=== PATIENT | male | born 1980 | race Caucasian/White ===

== ENCOUNTER 2020-11-28 03:01 | Emergency (ER) | payer MEDICAID, SELFPAY ==
[2020-11-28 03:09] VITALS: BP 128/106; PULSE 106; RESP 20; O2SAT 98; BMI 29.8
[2020-11-28 03:17] VITALS: BP 125/83; PULSE 99; O2SAT 92
--- NOTE | 2020-11-28 03:48 | ED_ITS ---
HPI - Overdose General Chief Complaint: Overdose Stated Complaint: OD Time Seen by Provider: 11/28/20 03:46 Source: patient and EMS Mode of arrival: EMS Limitations: no limitations History of Present Illness HPI Narrative: Patient comes to the emergency room via EMS. Patient was found unresponsive behind [employer], was given 4 mg nasal Narcan, patient was ventilated with [id number] by police department, then he was given an additional 4 mg nasal by EMS. Patient woke up, patient is alert and oriented x3, admits to using heroin, smoking crack, drinking alcohol. Patient states this is his 1st overdose in 6 weeks, states it was unintentional, denies suicidal homicidal ideation. Patient denies any other complaints Related Data Allergies Allergy/AdvReac Type Severity Reaction Status Date / Time doxycycline Allergy Hives Verified 11/28/20 03:14 Review of Systems Review of Systems: Constitutional : No Weight loss, No Fever, No Chills, No Night Sweats, No Fatigue, No Malaise ENT/Mouth : No Hearing loss, No Ear Pain, No Nasal Congestion, No Sinus Pain, No Hoarseness, No sore throat, No Rhinorrhea, No Swallowing Difficulty Eyes: No Eye Pain, No Swelling, No Redness, No Foreign Body, No Discharge, No Vision Changes Cardiovascular : No Chest Pain, No SOB, No Dyspnea on Exertion, No Orthopnea, No Edema, No Palpitations Respiratory : No Cough, No Sputum, No Wheezing, No Smoke Exposure, No Dyspnea Gastrointestinal : No Nausea, No Vomiting, No Diarrhea, No Constipation, No abdominal Pain, No Hematochezia, No Melena Genitourinary : no irregular bleeding, No Dysuria, No Urinary Frequency, No Hematuria, No Urinary Incontinence, No Urgency, No Flank Pain, No Urinary Flow Changes, No Hesitancy Musculoskeletal : No joint pain, No Myalgias, No Joint Swelling Skin : No Skin Lesions, No rash Neuro : No Weakness, No Numbness, No Paresthesias, No Loss of Consciousness, No Dizziness, No Headache Psych : No Anxiety/Panic, No Depression, No SI/HI/AH/VH, No Social Issues, Heme/Lymph: No Bruising, No Bleeding,No Lymphadenopathy Endocrine : No Polyuria, No Polydipsia, No Temperature Intolerance [facility] Past Medical History Medical History (Updated 11/28/20 @ 03:51 by Heather Stewart MD) Substance abuse Social History Social History Advance Directives: No Physical Exam Vital Signs: Vital Signs: Last Vital Signs Pulse 92 11/28/20 07:25 Resp 17 11/28/20 07:25 BP 117/63 11/28/20 07:25 Pulse Ox 99 11/28/20 07:25 Body Mass Index 29.8 Appearance: Alert. Oriented X3. No acute distress. Somnolent but easily arousable, calm and cooperative Eyes: Pupils equal, round and reactive to light. ENT: Pharynx normal. Neck: Normal inspection. Neck supple. No lymph nodes noted. No crepitus CVS: Normal heart rate and rhythm. Pulses normal. Normal S1 and S2 Respiratory: No respiratory distress. Breath sounds normal. No Wheezing. No rales Abdomen: Soft and nontender. No rigidity. No distention. good BS x4 Skin: Skin warm and dry. Normal skin color. Normal skin turgor. Extremities: No lower extremity edema. No lower extremity edema. No Lacerations. No Rash Neuro: Oriented X 3. No motor deficit. No sensory deficit. Moving all extermities. No slurred speech. Course Course Course Narrative: Patient is alert and oriented x3, no acute distress, remains calm and cooperative, oxygen saturation remains 98% on room air. Patient ready for discharge Patient was provided with home Narcan. Discharge Plan Discharge Clinical Impression: Drug overdose Qualifiers: Encounter type: initial encounter Injury intent: accidental or unintentional Qualified Code(s): T50.901A - Poisoning by unspecified drugs, medicaments and biological substances, accidental (unintentional), initial encounter Patient Disposition: Home, Self-Care Instructions: Polysubstance Abuse (ED) Additional Instructions: Please follow-up with your primary care physician tomorrow. If you have any worsening or new symptoms, please return to the emergency room or call 911
[2020-11-28 04:22] VITALS: PULSE 94; O2SAT 100
[2020-11-28 06:37] VITALS: BP 120/46; PULSE 104; RESP 16; O2SAT 97
--- NOTE | 2020-11-28 06:37 | PC.NURSE ---
Pt sleeping, wakes easily to verbal stimuli, denies pain/discomfort. Calm/cooperative at this time. Continue to monitor.
[2020-11-28 07:25] VITALS: BP 117/63; PULSE 92; RESP 17; O2SAT 99
== END 2020-11-28 07:50 | disposition home or self-care (01) ==
PROVIDERS: Emergency Provider Emergency Medicine
DX: T40.1X1A Poisoning by heroin, accidental (unintentional), initial encounter (principal); Y92.9 Unspecified place or not applicable; F11.10 Opioid abuse, uncomplicated; Z71.51 Drug abuse counseling and surveillance of drug abuser
CPT/HCPCS: 99284

== ENCOUNTER 2021-11-21 22:44 | Emergency (ER) | payer OTHER, SELFPAY ==
[2021-11-21 22:55] VITALS: BP 121/88; PULSE 119; RESP 18; TEMP 36.9; O2SAT 97; BMI 30.4
--- NOTE | 2021-11-21 23:25 | ED.GENADULT ---
HPI - General Adult General Chief complaint: General Medical Stated complaint: detox/medical clearance Time Seen by Provider: 11/21/21 23:25 Source: patient Mode of arrival: ambulatory Limitations: no limitations History of Present Illness HPI narrative: Patient with history of substance abuse so for some time today had some alcohol cocaine and heroin does not have any place to go back because of drugs asking for some help not sure he wants detox at this time saturating 97% on room air Related Data Allergies Allergy/AdvReac Type Severity Reaction Status Date / Time doxycycline Allergy Hives Verified 11/21/21 23:03 Review of Systems Review of Systems: Yes all other systems are reviewed and are negative PMFSH Past Medical History Medical History HIV (human immunodeficiency virus infection) Substance abuse Social History Social History Advance Directives: No Physical Exam ED Vital Signs: Vital Signs - 24 hr 11/21/21 22:55 Temperature 98.5 F Pulse Rate 119 H Respiratory Rate 18 Blood Pressure 121/88 Pulse Oximetry 97 BMI result Body Mass Index 30.4 Appearance: Alert. Oriented X3. No acute distress. Patient dozing off frequently Eyes: PERRLA, No Nystagmus ENT: Pharynx normal. Oral Mucosa moist Neck: Normal inspection. Neck supple. CVS: Normal heart rate and rhythm. Pulses normal. Respiratory: No respiratory distress. Equal air entry bilateral, no wheezing/rales/rhonchi Abdomen: Soft and nontender. Bowel sounds are present, Skin: Skin warm and dry. Normal skin color. Normal skin turgor. Extremities: No lower extremity edema. No calf tenderness Neuro: Oriented X 3. No motor deficit. Discharge Plan Discharge Clinical Impression: Polysubstance abuse Patient Disposition: Home, Self-Care Instructions: Polysubstance Abuse (ED) Additional Instructions: Stop using drugs and follow with detox
[2021-11-22 00:47] VITALS: BP 116/83; PULSE 118; RESP 17; TEMP 36.7; O2SAT 98
--- NOTE | 2021-11-22 02:23 | PC.NURSE ---
Pt noted to be in the bathroom for an extended period of time. This RN witnessing pt through a crack in the bathroom door remove a needle from his bag. Security contacted, door opened. Pt denying trying to use IV drugs in the bathroom. Pt staying the night to possibly go to detox in the morning. This RN requesting pt to be changed over, pt refusing changeover. Pt requesting to leave, aware.
== END 2021-11-22 02:28 | disposition home or self-care (01) ==
PROVIDERS: Emergency Provider Internal Medicine
DX: F14.19 Cocaine abuse with unspecified cocaine-induced disorder (principal); F11.19 Opioid abuse with unspecified opioid-induced disorder; F10.19 Alcohol abuse with unspecified alcohol-induced disorder; Z71.51 Drug abuse counseling and surveillance of drug abuser; Z79.899 Other long term (current) drug therapy
CPT/HCPCS: 99282; 99284

== ENCOUNTER 2021-11-24 23:41 | Emergency (ER) | payer OTHER, SELFPAY ==
[2021-11-24 23:49] VITALS: BP 141/96; PULSE 106; O2SAT 99
--- NOTE | 2021-11-24 23:50 | ED.PSYCH ---
HPI - Psych General Chief Complaint: Overdose Stated Complaint: OD Time Seen by Provider: 11/24/21 23:50 Source: patient Mode of arrival: EMS Limitations: no limitations History of Present Illness HPI Narrative: Patient with history of substance abuse IVDA cocaine and job was here on 11/21 went to detox and came out today used the door open cocaine again became unresponsive bystanders called the EMS gave Narcan 2 times now patient back to normal alert awake x3 breathing normally saturating 99% at room. Patient is homeless denies any depression or anxiety no hallucinations or psych problem Related Data Home Medications Medication Instructions Recorded Confirmed bictegravir 50 mg-emtricitabine 1 tab PO DAILY 11/25/21 11/25/21 200 mg-tenofovir alafenam 25 mg tablet (Biktarvy) Allergies Allergy/AdvReac Type Severity Reaction Status Date / Time doxycycline Allergy Hives Verified 11/21/21 23:03 Review of Systems Review of Systems: Yes all other systems are reviewed and are negative [facility] Past Medical History Medical History HIV (human immunodeficiency virus infection) Substance abuse Social History Social History Advance Directives: No Physical Exam Vital Signs: Vital Signs: Last Vital Signs Temp 98.1 F 11/24/21 23:51 Pulse 95 11/24/21 23:51 Resp 14 11/24/21 23:51 BP 126/85 11/24/21 23:51 Pulse Ox 99 11/24/21 23:51 BMI result Body Mass Index 28.2 Appearance: Alert. Oriented X3. No acute distress. Eyes: PERRLA, ENT: Pharynx normal. Oral Mucosa moist Neck: Normal inspection. Neck supple. CVS: Normal heart rate and rhythm. Pulses normal. Respiratory: No respiratory distress. Equal air entry bilateral, no wheezing/rales/rhonchi Abdomen: Soft and nontender. Bowel sounds are present, no mass palpable, no CVA tenderness Skin: Skin warm and dry. Normal skin color. Normal skin turgor. Extremities: No lower extremity edema. No calf tenderness IVDA track laura+ Neuro: Oriented X 3. No motor deficit. No sensory deficit.No cerebellar signs , cranial nerves II-XII intact MDM - Psych MDM Narrative Medical decision making narrative: Patient seen by care team will re-evaluate him in the morning again for placement Discharge Plan Discharge Clinical Impression: Drug overdose, Poisoning by opiate or related narcotic Patient Disposition: Still a Patient Prescriptions: No Action Biktarvy 50-200-25 mg tablet 1 tab PO DAILY 0RF
[2021-11-24 23:51] VITALS: BP 126/85; PULSE 95; RESP 14; TEMP 36.7; O2SAT 99; BMI 28.2
--- NOTE | 2021-11-25 00:24 | PC.NURSE ---
Violeta from care team called and will be by to see patient.
--- NOTE | 2021-11-25 01:12 | HO.SUDE ---
CARE team met with pt to complete substance use disorder evaluation. Pt arrived to the ED s/p accidental opiate overdose after bystanders found him in an alley and administered narcan. Pt is alert and oriented and medically stable. DOC 1: Alcohol, started drinking around age 18, on and off for 23 years, longest period in recovery approx 3 months, last use 11/21/21 DOC 2: Opiates, started using IV when he was 33 years old, off and on since, longest period in recovery approx 3 months, last use 11/25/21 DOC 3: Cocaine, started using when 23 years old, sporadic use, started using IV 5-6 years ago, last use 11/21/21 Pt reported that he had been living in the [facility] in [place] and on 11/21/21 he left and drank alcohol and used opiates and cocaine. He presented to the ED seeking detox, however he left without being seen by the CARE team or recovery team after ED staff suspected that he was attempting to use in the bathroom. On 11/22/21 he went to [facility] detox. The plan was for him to stay at [facility] until 11/26/21 and then he could return to the [facility], however he impulsively decided to leave [facility] today, came to [place] to use, and then overdosed. Pt reported that he had this fantasy belief that he would use a little heroin and cocaine, go to [place] to drink a few beers and play guitar with some friends, and then go back to [place]. He stated I want to be sober, and sometimes I don't, but I never want this (referring to the overdose and hospital visit). He reported that he has a long history of being in and out of detox facilities and residential treatment. He stated that he has been on vivitrol a few times, most recently through [email or web address] in [place] and had his last injection in August 2021, and reported that he has found it to be helpful, but he stopped getting the injections and he doesn't understand why. He reported that he has a history of anxiety and depression and that he is currently on the waitlist for individual therapy through [facility] in [place]. He denied having a history of inpt psychiatric admissions. Plan is for pt to remain in ED overnight for follow up with the recovery team in the morning. Pt would benefit from returning to a detox program with the intention of completing it, however it should be confirmed with the [facility] whether he can return after completing a program or if he will have to start the process over. ED attending physician updated re: this insurance underwriter sales's recommendation.
[2021-11-25 02:22] VITALS: BP 115/86; PULSE 91; RESP 18; O2SAT 95
[2021-11-25 02:25] VITALS: BP 126/54; PULSE 74; RESP 16; TEMP 37.1; O2SAT 95
[2021-11-25 02:29] LABS: COVID-19 Test Negative (Negative)
[2021-11-25 04:05] VITALS: PULSE 98; RESP 19; O2SAT 94
[2021-11-25 07:13] VITALS: BP 111/58; PULSE 79; RESP 12; O2SAT 95
--- NOTE | 2021-11-25 09:23 | PC.NURSE ---
pt verbalized this morning that he wants to return to [facility] and work it out himself and with staff . I placed a call to case management and told them what pt wanted to do, they will come and see him shortly to talk about no detox.
--- NOTE | 2021-11-25 09:48 | MHC.CARE ---
Met with patient in ED bed 5 after he requested to be discharged, told RN he does not want detox. Stated his plan is to contact program where he was living and ask if he can return and what he needs to do, does not think he needs detox given this was a brief relapse but if this is required he will. Patient reported he is friends with a couple in [place] that he met in the program (they are in recovery) and can stay with them, they would be supportive and help him abstain is able to return to [facility]. Patient denied suicidal ideation, plan or intention. Provided bus passes and information about [facility], he is familiar with local crisis and detoxes. updated.
== END 2021-11-25 09:52 | disposition home or self-care (01) ==
PROVIDERS: Emergency Provider Internal Medicine
DX: T40.2X1A Poisoning by other opioids, accidental (unintentional), initial encounter (principal); Y92.9 Unspecified place or not applicable; F14.10 Cocaine abuse, uncomplicated; Z21 Asymptomatic human immunodeficiency virus [HIV] infection status; Z59.02 Unsheltered homelessness; Z20.822 Contact with and (suspected) exposure to COVID-19
CPT/HCPCS: 87635; 99284